=== PATIENT | female | born 1975 | race African-American/Black ===

== ENCOUNTER 2022-06-09 21:35 | Emergency (ER) | payer MEDICAID, OTHER ==
[~2022-06-09] VITALS: Ht 162.6 cm; Wt 68.0 kg
[~2022-06-09 21:35] MED LIST: HYDR-519 PO; IBUP1TAB73 PO; METH250T26 PO; PREN-88 PO; UNK HTN
[2022-06-10] MEDS ORDERED: OXYCODONE HCL/ACETAMINOPHEN 5/325MG TABLET PO ONE (06:00)
[2022-06-10] MEDS ORDERED: HYDROCODONE/ACETAMINOPHEN 5/325MG TABLET PO ONE (06:00)
[2022-06-10 06:07] VITALS: BP 146/86
== END 2022-06-10 06:12 | disposition home or self-care (01) ==
LOC: ER 21:35
DX: K22.4 Dyskinesia of esophagus (principal); E78.00 Pure hypercholesterolemia, unspecified; I10 Essential (primary) hypertension; Z87.891 Personal history of nicotine dependence
CPT/HCPCS: 93005; 99283